=== PATIENT | female | born 1950 | race Caucasian/White ===

== ENCOUNTER 2020-05-20 10:52 | Outpatient (CLI) | payer MEDICARE, SELFPAY ==
--- NOTE | ~2020-05-20 | CT_ITS ---
EXAMINATION: CT lung screening DATE: 05/20/2020 11:30 INDICATION: Personal history of tobacco dependence, prior smoker with 30 pack year history TECHNIQUE: Computed tomography (CT) of the chest was performed without intravenous contrast. The dose -length product (DLP) was 70.83 mGy-cm. Automated exposure control and iterative reconstruction techn ique were employed. COMPARISON: None FINDINGS: There is moderate emphysema. There are scattered 1 to 2 mm nodules in the lungs. The larges t is a 3 mm nodule of the left upper lobe on image 34. There is no pleural effusion or pneumothorax. No pathologically enlarged thoracic lymph nodes are identified. The heart size is normal. Calcified c oronary artery atherosclerosis is noted. There is mild thoracic spondylosis. IMPRESSION: 1. Lung-RADS category 2: Benign appearance or behavior. Continue annual screening with noncontrast lo w-dose chest CT in 12 months. Reviewed, dictated and finalized at location A. IMPRESSION: 1. Lung-RADS category 2: Benign appearance or behavior. Continue annual screeni ng with noncontrast low-dose chest CT in 12 months.
== END 2020-05-20 10:53 | disposition home or self-care (01) ==
PROVIDERS: PCP Family Medicine; Visit Provider Family Medicine
DX: Z12.2 Encounter for screening for malignant neoplasm of respiratory organs (principal); Z87.891 Personal history of nicotine dependence
CPT/HCPCS: G0297

== ENCOUNTER 2020-08-30 14:22 | Outpatient (CLI) | payer MEDICARE, SELFPAY ==
--- NOTE | ~2020-08-30 | XR_ITS ---
EXAMINATION: XR abdomen/kub 1V DATE: 08/30/2020 14:46 INDICATION: Left flank pain. Kidney stone. TECHNIQUE: A supine view of the abdomen on 2 radiographs was obtained. COMPARISON: Abdomen radiographs 02/15/2019 FINDINGS: There are no dilated loops of bowel. There is no visible urolithiasis. There is a phlebolit h in right pelvis. IMPRESSION: 1. No visible urolithiasis. Reviewed, dictated and finalized at location B. IMPRESSION: 1. No visible urolithiasis.
== END 2020-08-30 14:23 | disposition home or self-care (01) ==
LOC: ANHIMG 14:33
PROVIDERS: PCP Family Medicine; Visit Provider Urology
DX: Z87.442 Personal history of urinary calculi (principal)
CPT/HCPCS: 74018

== ENCOUNTER 2020-09-03 01:25 | Emergency (ER) | payer MEDICARE, SELFPAY ==
[2020-09-03] VITALS (8 sets, daily range): BP systolic 97–140; BP diastolic 57–71; PULSE 94–120; RESP 16–24; TEMP 36.6; O2SAT 95–100
--- NOTE | ~2020-09-03 | XR_ITS ---
EXAMINATION: XR chest 2V DATE: 09/03/2020 03:01 INDICATION: Shortness of breath. TECHNIQUE: Frontal and lateral views of the chest were obtained. COMPARISON: Chest single view 01/04/2019, chest CT 05/20/2020 FINDINGS: The lungs are hyperexpanded, consistent with emphysema. There is blunting of left posterior costophrenic angle. No pneumothorax. The heart size is normal. IMPRESSION: 1. Blunting of left posterior costophrenic angle, consistent with scarring versus tiny pleural effusi on. 2. Emphysema. Reviewed, dictated and finalized at location A. IMPRESSION: 1. Blunting of left posterior costophrenic angle, consistent with scarring vers us tiny pleural effusion. 2. Emphysema.
--- NOTE | 2020-09-03 01:48 | ECG_ITS ---
Measurements Intervals [place] Rate: 116 P: 88 [place]: 116 QRS: 46 QRSD: 94 T: 73 QT: 320 QTc: 445 Interpretive Statements SINUS TACHYCARDIA BASELINE ARTIFACT- I, II, III, AVR, AVL, AVF, V1 ABNORMAL ECG Electronically Signed On 09-03-2020 7:05:55 CDT by Rio Francisco D.O.
--- NOTE | 2020-09-03 02:07 | ED.SOB ---
HPI - SOB/Dyspnea General Chief Complaint: Shortness of Breath/Dyspnea Stated Complaint: sob Time Seen by Provider: 09/03/20 01:32 Source: patient Mode of arrival: EMS Limitations: no limitations History of Present Illness HPI Narrative: This patient is a 70 year old female smoker with history of COPD who presents for evaluation of shortness of breath. PAtient states she was in house that was hot and muggy, and she developed shortness of breath. She reports she used her albuterol inhaler twice with out relief and her shortness breath worsen throughout the night. She reports her breathing back worse at 9 pm. She denies having chest pain, worsening cough, fever, nausea, vomiting or palpitations. EMs gave patient 2 albuterol nebs and she states she feels much better. She denies any sob. Related Data Allergies Allergy/AdvReac Type Severity Reaction Status Date / Time acetaminophen Allergy Unknown TRIPS ME Verified 09/03/20 03:07 OUT codeine Allergy Unknown TRIPS ME Verified 09/03/20 03:07 OUT erythromycin base Allergy Unknown sensitive Verified 09/03/20 03:07 Penicillins Allergy Unknown DOESN'T Verified 09/03/20 03:07 REMEMBER Review of Systems Review of Systems: All systems reviewed & are unremarkable except as noted in HPI and below Constitutional: Constitutional: Denies chills and Denies fever(s) ENT: Denies dysphagia, Denies dizziness, Reports nasal congestion (chronic) and Denies sore throat Cardiovascular: Cardiovascular: Denies chest pain, Denies rapid heart rate and Denies radiating jaw, neck or arm pain Respiratory: Respiratory: Denies cough, Reports dyspnea and Denies wheezing Gastrointestinal: Gastrointestinal: Denies abdominal pain, Denies nausea and Denies vomiting PMFSH Past Medical History Medical History (Updated 09/03/20 @ 05:33 by Karely Corley MD) Cerebral atherosclerosis COPD (chronic obstructive pulmonary disease) MINNIE (generalized anxiety disorder) MDD (major depressive disorder) Tobacco abuse Family History Family History (System 04/26/20 @ 09:32 by Mackenzie Hsu) Father Family history of premature coronary heart disease, Onset Age: 72 Patient's father is Mother Family history of cardiomyopathy, Onset Age: 76 Patient's mother is Social History Social History (Updated 05/06/20 @ 11:06 by Gricelda Mancini) Smoking packs per day: 0.5 Smoking cigarettes per day: 10.0 Smoking status: Never smoker Tobacco type: cigarettes Second hand tobacco smoke exposure: Yes Smoking end date: 11/22/18 Alcohol intake: never Substance use: never Substance use type: does not use Gender identity (if verbalized by the patient): Female Exam Const: General: no acute distress and alert Orientation/consciousness: patient oriented x3 HENMT: Head: atraumatic Face and sinus: face symmetric Eyes: EOM: EOMs intact bilaterally Chest: Chest palpation & inspection: normal inspection of the chest Resp: Effort & Inspection: normal respiratory effort, not labored, no retractions and not tachypneic Auscultation: wheezes Other: able speak in complete sentences Cardio: Rate: tachycardic Rhythm: regular rhythm Heart sounds: no murmurs GI: GI Palp: Yes Soft to palpation, No Tenderness to palpation present (GI), No Guarding due to palpation present (GI) and No Rigid due to palpation Skin: General skin exam: normal color Rashes: no rashes Neuro: General: patient oriented x3 and moves all extremities Course Reevaluation(s) Reevaluation #1: Patient states she feels better. She is normal oxygen saturation. This may have just been COPD exacerbation. She works for [employer] so given basilar infiltrates Date: 09/03/20 Time: 05:30 Vital Signs Vital signs: Vital Signs Temperature 97.9 F 09/03/20 01:31 Pulse Rate 120 H 09/03/20 01:31 Respiratory Rate 24 H 09/03/20 01:31 Blood Pressure 140/
[2020-09-03 02:15] LABS: Basophils Absolute Auto 0.1 K/mm3 (0.0-0.1); Basophils Percent Auto 0.3 % (0.2-1.2); Eosinophils Absolute Auto 0.1 K/mm3 (0-0.3); Eosinophils Percent Auto 0.5 % (0-4.4); Hematocrit 49.4 % (37.0-47.0); Hemoglobin 16.4 g/dL (12.0-15.0); Immature Granulocyte Absolute 0.05 K/mm3 (0.00-0.031); Immature Granulocyte Percent A 0.3 % (0-0.5); Lymphocytes Absolute Auto 2.63 K/mm3 (0.9-3.2); Lymphocytes Percent Auto 17.8 % (18.3-44.2); Mean Corpuscular HGB Conc 33.2 g/dl (32-36); Mean Corpuscular Hemoglobin 30.5 pg (26-34); Mean Platelet Volume 11.3 fl (7.4-10.4); Monocytes Absolute Auto 0.9 K/mm3 (0.1-0.6); Monocytes Percent Auto 6.4 % (2.6-8.5); Neutrophils Percent Auto 74.7 % (45.5-73.1); Platelet Count Result 171 k/mm3 (150-375); Red Blood Count 5.37 M/mm3 (4.2-5.4); Red Cell Distribution Width 13.4 % (11.5-14.5); White Blood Count 14.8 K/mm3 (4.5-10.0)
[2020-09-03] MEDS: methylPREDNISolone SOD SUCC 125 MG VIAL IV PUSH (02:16)
[2020-09-03] MEDS: SODIUM CHLORIDE 0.9% IV 1,000 ML 999 ML IV CONT (02:16)
[2020-09-03] MEDS: ALBUTEROL SULFATE NEB 2.5 MG/0.5 ML INH 5 MG INHALATION (02:23)
[2020-09-03] MEDS: IPRATROPIUM BR 0.02% INH SOLN 0.5 MG/2.5 ML VIAL INHALATION (02:23)
[2020-09-03 02:28] LABS: Anion Gap 6 mmol/L (8-16); Blood Urea Nitrogen 14 mg/dL (7-17); Calcium 9.1 mg/dL (8.4-10.2); Carbon Dioxide 33 mmol/L (22-30); Chloride 103 mmol/L (98-107); Estimated CRCL calculation 45 ml/min; Estimated Glomerular Filt Rate > 60; Glucose 165 mg/dL (65-105); Potassium 3.2 mmol/L (3.4-5.0); Sodium 142 mmol/L (137-145)
--- NOTE | 2020-09-03 02:28 | PCRCNOTE ---
Patient refused abg.
[2020-09-03 02:29] LABS: Partial Thromboplastin Time 27.5 SECONDS (22.3-36.8); Prothrombin Time 12.8 Seconds (11.1-14.7)
[2020-09-03 02:32] LABS: D Dimer 0.42 ug/mL (<0.48)
[2020-09-03 02:40] LABS: Troponin I < 0.012 ng/mL (0.000-0.034)
[2020-09-03 02:42] LABS: Lactic Acid Reflex 1.9 mmol/L (0.7-2.1)
[2020-09-03 13:14] LABS: SARS-CoV-2 RNA PCR Negative
== END 2020-09-03 06:05 | disposition home or self-care (01) ==
PROVIDERS: Emergency Provider General Practice; PCP Family Medicine
DX: J44.1 Chronic obstructive pulmonary disease with (acute) exacerbation (principal); Z20.828 Contact with and (suspected) exposure to other viral communicable diseases; R00.0 Tachycardia, unspecified; Z87.891 Personal history of nicotine dependence; F41.9 Anxiety disorder, unspecified
CPT/HCPCS: 36415; 71046; 80048; 83605; 84484; 85025; 85380; 85610; 85730; 87635; 93005; 94640; 96361; 96374; 99284; C9803; J2930; J7030; U0003

== ENCOUNTER 2021-04-06 16:31 | Emergency (ER) | payer MEDICARE, SELFPAY ==
--- NOTE | ~2021-04-06 | XR_ITS ---
EXAMINATION: XR chest 2V EXAM DATE: 04/06/2021 18:24 INDICATION: Cough/sob; hx of HTN, COPD, smoker TECHNIQUE: Frontal and lateral projections of the chest obtained and reviewed. Comparison is made to prior examination from 09/03/2020. FINDINGS: Chronic hyperinflation. The lungs are clear. There are no pleural effusions. The cardiome diastinal silhouette is within normal limits. There is no pneumothorax suspected. The bones and sof t tissues are unremarkable. There is no significant interval change. IMPRESSION: 1. No acute cardiopulmonary findings. 2. Hyperinflation. Reviewed, dictated and finalized at location A.
--- NOTE | 2021-04-06 16:34 | ECG_ITS ---
Measurements Intervals [place] Rate: 87 P: 86 [place]: 135 QRS: 81 QRSD: 87 T: 81 QT: 342 QTc: 412 Interpretive Statements SINUS RHYTHM POSSIBLE RIGHT ATRIAL ENLARGEMENT BORDERLINE ECG Electronically Signed On 04-06-2021 19:20:55 CDT by Rio Francisco D.O.
[2021-04-06 16:40] VITALS: BP 133/68; PULSE 90; RESP 20; TEMP 36.3; O2SAT 100
[2021-04-06 16:58] LABS: Basophils Percent Auto 0.3 % (0.2-1.2); Eosinophils Absolute Auto 0.1 K/mm3 (0-0.3); Eosinophils Percent Auto 1.6 % (0-4.4); Hematocrit 53.6 % (37.0-47.0); Hemoglobin 17.3 g/dL (12.0-15.0); Immature Granulocyte Absolute 0.02 K/mm3 (0.00-0.031); Immature Granulocyte Percent A 0.3 % (0-0.5); Lymphocytes Absolute Auto 1.62 K/mm3 (0.9-3.2); Lymphocytes Percent Auto 21.2 % (18.3-44.2); Mean Corpuscular HGB Conc 32.3 g/dl (32-36); Mean Corpuscular Hemoglobin 29.7 pg (26-34); Mean Corpuscular Volume 91.9 fl (80-100); Mean Platelet Volume 10.8 fl (7.4-10.4); Monocytes Absolute Auto 0.6 K/mm3 (0.1-0.6); Monocytes Percent Auto 8.3 % (2.6-8.5); Neutrophils Absolute Auto 5.2 K/mm3 (1.3-6.7); Neutrophils Percent Auto 68.3 % (45.5-73.1); Platelet Count Result 190 k/mm3 (150-375); Red Blood Count 5.83 M/mm3 (4.2-5.4); Red Cell Distribution Width 13.3 % (11.5-14.5); White Blood Count 7.6 K/mm3 (4.5-10.0)
[2021-04-06 17:10] LABS: Anion Gap 3 mmol/L (8-16); Blood Urea Nitrogen 13 mg/dL (7-17); Calcium 9.5 mg/dL (8.4-10.2); Carbon Dioxide 35 mmol/L (22-30); Chloride 105 mmol/L (98-107); Estimated CRCL calculation 45 ml/min; Estimated Glomerular Filt Rate > 60; Glucose 79 mg/dL (65-105); Sodium 143 mmol/L (137-145)
[2021-04-06 17:29] VITALS: BP 112/78; BP 125/65; BP 127/71; PULSE 77; PULSE 83; PULSE 90
[2021-04-06 18:47] LABS: Troponin I < 0.012 ng/mL (0.000-0.034)
--- NOTE | 2021-04-06 19:25 | PC.NURSE ---
Assumed care of pt at this time, Report taken from Narcisa NORIEGA. Pt alert and upright on stretcher, VSS.
[2021-04-06 19:26] VITALS: BP 139/78; PULSE 73; RESP 18; O2SAT 100
[2021-04-06 19:40] LABS: Add Urine Microscopic? NO; Appearance Urine Clear (Clear); Bilirubin Urine Negative (Negative); Blood Urine Negative (Negative); Color Urine Yellow (Yellow); Glucose Urine UA Negative (Negative); Ketones Urine Negative (Negative); Leukocyte Esterase Ur Negative LEU/UL (Negative); Nitrate Urine Negative (Negative); Protein Urine Negative (Negative); Specific Grav Ur 1.013 (1.001-1.035); Urobilinogen Urine Negative mg/dL (<2.0)
--- NOTE | 2021-04-06 20:10 | ED.DIZZY ---
HPI - Dizziness General Chief Complaint: Dizziness Stated Complaint: light headed and dizzy Time Seen by Provider: 04/06/21 17:32 Source: patient Mode of arrival: ambulatory Limitations: no limitations History of Present Illness HPI Narrative: 70-year-old female History of COPD Patient states that she was at home with the thermostat set at 70 degrees when she had a sudden feeling like she was becoming overheated and dizzy It was not a episode triggered by change in position and it was more of a woozy feeling in the top of her head versus a presyncope or vertigo sensation She really had no other complaints, no symptoms which would suggest the source for a fever such as a cough for dysuria or GI symptoms, no focal weakness, no gait issues Related Data Allergies Allergy/AdvReac Type Severity Reaction Status Date / Time acetaminophen Allergy Unknown TRIPS ME Verified 12/27/20 11:08 OUT codeine Allergy Unknown TRIPS ME Verified 12/27/20 11:08 OUT erythromycin base Allergy Unknown sensitive Verified 12/27/20 11:08 Penicillins Allergy Unknown DOESN'T Verified 12/27/20 11:08 REMEMBER Review of Systems Review of Systems: All systems reviewed & are unremarkable except as noted in HPI and below Constitutional: Constitutional: Reports no additional constitutional complaints, Denies chills, Reports fatigue, Denies fever(s), Denies headache(s) and Reports weakness Eyes: Eyes: Reports no additional eye complaints and Denies change in vision ENT: Reports dizziness, Denies headache(s) and Denies sore throat Cardiovascular: Cardiovascular: Denies chest pain, Denies radiating jaw, neck or arm pain and Denies dyspnea Respiratory: Respiratory: Denies cough and Denies dyspnea Gastrointestinal: Gastrointestinal: Denies abdominal pain, Denies diarrhea and Denies vomiting Genitourinary: Genitourinary: Denies urinary frequency and Denies dysuria Musculoskeletal: Musculoskeletal: Denies deformity, Denies arthralgias, Denies joint swelling and Denies numbness Integumentary/Breasts: Skin/Breast: Denies rash and Denies wounds Neurologic: Reports dizziness, Denies headache(s), Denies focal weakness and Denies numbness Psychiatric: Psychiatric: Reports no additional psychiatric complaints Endocrine: Endocrine: Reports no additional endocrine complaints Hematologic/Lymphatic: Hematologic/Lymphatic: Reports no additional hematologic/lymphatic complaints Allergic/Immunologic: Allergic/Immunologic: Reports no additional allergic/immunologic complaints PMFSH Past Medical History Medical History Cerebral atherosclerosis COPD (chronic obstructive pulmonary disease) MINNIE (generalized anxiety disorder) MDD (major depressive disorder) Tobacco abuse Family History Family History Father Family history of premature coronary heart disease, Onset Age: 72 Patient's father is Mother Family history of cardiomyopathy, Onset Age: 76 Patient's mother is Social History Social History (Updated 12/27/20 @ 11:10 by Fatimah Hauser) Social History: Years smoked: 55 Smoking status: Current some day smoker Tobacco type: cigarettes Second hand tobacco smoke exposure: Yes Smoking end date: 11/22/18 Alcohol intake: never Substance use: never Substance use type: does not use Gender identity (if verbalized by the patient): Female Exam Const: General: cooperative, no acute distress and alert Orientation/consciousness: patient oriented x3 (alert) HENMT: Head: normal to inspection, normocephalic and atraumatic Ears: external ears normal General nose exam: no epistaxis Eyes: Conjunctivae: conjunctivae normal EOM: EOMs intact bilaterally Neck: Neck: normal visual inspection, supple and no JVD Resp: Effort & Inspection: normal respiratory effort, not labored
[2021-04-06 20:28] VITALS: BP 140/70; PULSE 72; RESP 16; O2SAT 98
== END 2021-04-06 20:28 | disposition home or self-care (01) ==
PROVIDERS: Emergency Provider Emergency Medicine; PCP Family Medicine
DX: R42 Dizziness and giddiness (principal); D75.1 Secondary polycythemia; I67.2 Cerebral atherosclerosis; J44.9 Chronic obstructive pulmonary disease, unspecified; F17.210 Nicotine dependence, cigarettes, uncomplicated; R94.31 Abnormal electrocardiogram [ECG] [EKG]; F41.1 Generalized anxiety disorder; F32.9 Major depressive disorder, single episode, unspecified
CPT/HCPCS: 36415; 71046; 80048; 81003; 84484; 85025; 93005; 99284

== ENCOUNTER 2021-04-30 10:05 | Outpatient (CLI) | payer MEDICARE, SELFPAY ==
--- NOTE | ~2021-04-30 | MM_ITS ---
EXAMINATION: MM screening contra [facility] BI w jared HISTORY: Screening mammogram TECHNIQUE: Craniocaudal and mediolateral oblique 3-D tomosynthesis images were obtained and synthetic 2-D images were generated. CAD analysis was submitted and interpreted. COMPARISON: 05/04/2018, 11/2015, 06/21/2013 bilateral digital screening mammogram examinations. BREAST PARENCHYMAL COMPOSITION: There are scattered areas of fibroglandular density. FINDINGS: 5 mm mass in the anterior lower mid right breast at 6:00. 7 mm lobular mass in the upper inner left breast. Stable circumscribed 5 mm probable lymph node in the left axillary tail, likely a benign lymph node.. Bilateral diagnostic mammography and bilateral breast ultrasound examination are recommended. IMPRESSION: 1. Bilateral breast masses 2. Bilateral diagnostic mammography and bilateral breast ultrasound examination are recommended. BI-RADS Category 0: Incomplete: Needs additional imaging evaluation. Reviewed, dictated and finalized at location A.
--- NOTE | ~2021-04-30 | DEXA_ITS ---
Bone Density Report Name: Candy Thurman Age: 70 Sex: Female Ethnicity: White Date of : 1950 Indication: osteopenia; height loss; asthma or emphysema; hysterectomy; Referring Provider: JEREMY MARSH Study: Bone densitometry was performed. Exam Date: April 30, 2021 Accession number: [id number] Bone Density: Region BMD T-score Z-score Classification AP Spine (L1-L4) 0.827 -2.0 0.3 Osteopenia Femoral Neck (Left) 0.526 -2.9 -0.9 Osteoporosis Total Hip (Left) 0.673 -2.2 -0.5 Osteopenia Total Hip Bilateral Avg 0.698 -2.0 -0.3 Osteopenia Femoral Neck (Right) 0.557 -2.6 -0.7 Osteoporosis Total Hip (Right) 0.722 -1.8 -0.1 Osteopenia World Health Organization criteria for BMD impression classify patients as: Normal (T-score at or above -1.0), Osteopenia (T-score between -1.0 and -2.5), or Osteoporosis (T-score at or below -2.5). 10-year Fracture Risk: FRAX not reported because: Some T-score for Spine Total or Hip Total or Femoral Neck at or below -2.5 Previous Exams: Region Exam Age BMD T-score BMD Change BMD Change Date g/cm2 vs Baseline vs Previous AP Spine(L1-L4) 04/30/2021 70 0.827 -2.0 -0.091(-10.0%) 0.002(0.2%) 11/25/2015 65 0.825 -2.0 -0.093(-10.1%) -0.021(-2.5%)# 06/21/2013 63 0.846 -1.8 -0.072(-7.9%)# -0.072(-7.9%)# 02/18/2005 54 0.918 -1.2 Total Hip(Left) 04/30/2021 70 0.673 -2.2 -0.159(-19.2%) -0.071(-9.5%)* 11/25/2015 65 0.743 -1.6 -0.089(-10.7%) -0.023(-3.0%)# 06/21/2013 63 0.766 -1.4 -0.066(-7.9%)# -0.066(-7.9%)# 02/18/2005 54 0.832 -0.9 Total Hip(Right) 04/30/2021 70 0.722 -1.8 -0.144(-16.7%) -0.056(-7.2%)* 11/25/2015 65 0.778 -1.3 -0.088(-10.2%) -0.029(-3.6%)# 06/21/2013 63 0.807 -1.1 -0.059(-6.9%)# -0.059(-6.9%)# 02/18/2005 54 0.866 -0.6 *Denotes significance at 95% confidence level, LSC for AP Spine = 0.022 g/cm2, LSC for Total Hip = 0.027 g/cm2 Clinical Information Provided by Patient: Smokes Has used the following medications: Vitamin D, Calcium Has the following medical conditions: Asthma or Emphysema, Hysterectomy Patient maximum height was 65 Menopause Age: 37 Onset of menses at age 8 Number of children 2 Impression: The patient has osteoporosis, based on the Left Femoral Neck T-score. The patient has risk factors, including: smoking. The BMD for the Total Hip(Left) decreased, changing by -9.5% since the last DXA exam. The BMD for the Total Hip(Right
== END 2021-04-30 10:06 | disposition home or self-care (01) ==
LOC: ANHIMG 10:13
PROVIDERS: PCP Family Medicine; Visit Provider Family Medicine
DX: Z12.31 Encounter for screening mammogram for malignant neoplasm of breast (principal); Z78.0 Asymptomatic menopausal state; R92.8 Other abnormal and inconclusive findings on diagnostic imaging of breast; M81.0 Age-related osteoporosis without current pathological fracture; M85.88 Other specified disorders of bone density and structure, other site; M85.852 Other specified disorders of bone density and structure, left thigh
CPT/HCPCS: 77063; 77067; 77080

== ENCOUNTER 2021-05-13 15:14 | Outpatient (CLI) | payer MEDICARE, SELFPAY ==
--- NOTE | ~2021-05-13 | CT_ITS ---
EXAMINATION:CT diagnostic chest wo con DATE: 05/13/2021 15:34 INDICATION: Lung nodules. Personal history of tobacco dependence. TECHNIQUE: Computed tomography (CT) of the chest was performed without intravenous contrast. Automate d exposure control and iterative reconstruction technique were employed. The dose-length product (DLP ) was 139.50 mGy-cm. COMPARISON: Chest CT 05/20/2020 FINDINGS: There is moderate emphysema. There is mild atelectasis bilaterally. There is a 3 mm nodule in left upper lobe without change, likely benign. No pleural effusion. The heart size is normal. Ther e are coronary artery calcifications. No pericardial effusion. There is thoracic kyphosis and severe spondylosis. IMPRESSION: 1. Lung-RADS category 2: Benign appearance or behavior. Continue annual screening with noncontrast lo w-dose chest CT in 12 months. Reviewed, dictated and finalized at location A. IMPRESSION: 1. Lung-RADS category 2: Benign appearance or behavior. Continue annual screeni ng with noncontrast low-dose chest CT in 12 months.
== END 2021-05-13 15:15 | disposition home or self-care (01) ==
LOC: ANHIMG 15:16
PROVIDERS: PCP Family Medicine; Visit Provider Physician Assistant
DX: Z12.2 Encounter for screening for malignant neoplasm of respiratory organs (principal); Z87.891 Personal history of nicotine dependence
CPT/HCPCS: 71250

== ENCOUNTER 2021-05-27 11:09 | Outpatient (CLI) | payer MEDICARE, SELFPAY ==
--- NOTE | ~2021-05-27 | MMUS_ITS ---
EXAMINATION: MM diagnostic mammo BI, US breast BI limited HISTORY: Bilateral breast masses on screening mammogram TECHNIQUE: Additional 3-D tomosynthesis images of the breasts were performed and synthetic 2-D images were generated. CAD analysis was submitted and interpreted. High resolution limited bilateral breast ultrasound was performed. COMPARISON: 04/30/2021, 05/04/2018, 11/25/2015 FINDINGS: MAMMOGRAPHIC FINDINGS: Left breast: A 7 mm low-density oval, circumscribed mass is present in the upper inner breast at the 10:00 location 6 cm from the nipple and has a similar appearance to prior mammograms with spot compre ssion views. There has been no suspicious interval change. Right breast: There is a 6 mm x 5 mm oval, obscured, equal density mass in the anterior/middle third of the breast at the 6:00 location 3 cm from the nipple ULTRASOUND: Left breast: There is a 5 mm x 3 mm oval, circumscribed, parallel, hypoechoic mass with no posterior features or internal vascularity at the 11:00 location 5 cm from the nipple. Right breast: There is a 6 mm x 4 mm oval, circumscribed, parallel, anechoic mass with posterior acou stic enhancement and no internal vascularity at the 7:00 location 2 cm from the nipple IMPRESSION: 1. Benign bilateral breast masses without mammographic or sonographic evidence of malignancy. 2. Recommend routine screening mammography in one year. BI-RADS Category 2: Benign finding(s). Reviewed, dictated and finalized at location A. IMPRESSION: 1. Benign bilateral breast masses without mammographic or sonographic evidence of malignancy. 2. Recommend routine screening mammography in one year. BI-RADS Category 2: Benign finding(s).
== END 2021-05-27 11:10 | disposition home or self-care (01) ==
LOC: ANHIMG 11:11
PROVIDERS: PCP Family Medicine; Visit Provider Physician Assistant
DX: R92.8 Other abnormal and inconclusive findings on diagnostic imaging of breast (principal)
CPT/HCPCS: 76642; 77066

== ENCOUNTER 2022-07-13 14:28 | Outpatient (CLI) | payer MEDICARE, SELFPAY ==
--- NOTE | ~2022-07-13 | MM_ITS ---
EXAMINATION: MM screening [facility] BI w jared HISTORY: Screening TECHNIQUE: Craniocaudal and mediolateral oblique 3-D tomosynthesis images were obtained and synthetic 2-D images were generated. CAD analysis was submitted and interpreted. COMPARISON: Comparison to multiple prior studies sequentially, with oldest reviewed study dated 02/2016. BREAST PARENCHYMAL COMPOSITION: There are scattered areas of fibroglandular density. FINDINGS: There is no evidence of suspicious mass, calcification, or architectural distortion to sugg est malignancy in either breast. There has been no suspicious interval change. IMPRESSION: 1. No mammographic evidence of malignancy. 2. Recommend routine screening mammography in one year. BI-RADS Category 1: Negative Reviewed, dictated and finalized at location A.
== END 2022-07-13 14:29 | disposition home or self-care (01) ==
LOC: ANHIMG 14:29
PROVIDERS: PCP Family Medicine; Visit Provider Family Medicine
DX: Z12.31 Encounter for screening mammogram for malignant neoplasm of breast (principal)
CPT/HCPCS: 77063; 77067

== ENCOUNTER 2023-09-21 11:18 | Outpatient (CLI) | payer MEDICARE, SELFPAY ==
[2023-09-21 11:45] LABS: Basophils Percent Auto 0.6 % (0.2-1.2); Eosinophils Absolute Auto 0.1 K/mm3 (0-0.3); Eosinophils Percent Auto 1.3 % (0-4.4); Hematocrit 52.8 % (37.0-47.0); Hemoglobin 17.4 g/dL (12.0-15.0); Immature Granulocyte Absolute 0.01 K/mm3 (0.00-0.031); Immature Granulocyte Percent A 0.1 % (0-0.5); Lymphocytes Absolute Auto 1.81 K/mm3 (0.9-3.2); Lymphocytes Percent Auto 26.6 % (18.3-44.2); Mean Corpuscular Hemoglobin 29.3 pg (26-34); Mean Platelet Volume 10.4 fl (7.4-10.4); Monocytes Absolute Auto 0.5 K/mm3 (0.1-0.6); Monocytes Percent Auto 7.5 % (2.6-8.5); Neutrophils Absolute Auto 4.4 K/mm3 (1.3-6.7); Neutrophils Percent Auto 63.9 % (45.5-73.1); Platelet Count Result 216 k/mm3 (150-375); Red Blood Count 5.93 M/mm3 (4.2-5.4); Red Cell Distribution Width 13.7 % (11.5-14.5); White Blood Count 6.8 K/mm3 (4.5-10.0)
[2023-09-21 13:43] LABS: Alanine Aminotransferase 21 U/L (6-35); Albumin Level 4.6 g/dL (3.5-5.1); Alkaline Phosphatase 77 U/L (38-126); Anion Gap 7 mmol/L (8-16); Aspartate Amino Transferase 27 U/L (14-36); Blood Urea Nitrogen 16 mg/dL (7-17); Calcium 9.5 mg/dL (8.4-10.2); Carbon Dioxide 27 mmol/L (22-30); Chloride 104 mmol/L (98-107); Estimated Glomerular Filt Rate > 60; Glucose 97 mg/dL (65-110); Potassium 4.2 mmol/L (3.4-5.0); Sodium 138 mmol/L (137-145)
[2023-09-24 12:39] LABS: Erythropoietin (EPO) 6.4 mIU/mL (2.6-18.5)
[2023-09-28 12:58] LABS: Block/Specimen ID Not Given; CALR Exon 9 Mutation Not Detected (Not Detected); CSF3R Exon 14/17 Mutation Not Detected (Not Detected); JAK2 Exon 12 Mutation Not Detected (Not Detected); JAK2 V617F Mutation Not Detected (Not Detected); MPL Exon 10 Mutation Not Detected (Not Detected); Specimen Source Blood
== END 2023-09-21 11:19 | disposition home or self-care (01) ==
PROVIDERS: PCP Family Medicine; Visit Provider Internal Medicine Hematology & Oncology
DX: D75.1 Secondary polycythemia (principal)
CPT/HCPCS: 36415; 80053; 81219; 81270; 81279; 81339; 81479; 82668; 85025

== ENCOUNTER 2023-12-18 20:26 | Emergency (ER) | payer MEDICARE, SELFPAY ==
[2023-12-18] VITALS (15 sets, daily range): BP systolic 107–156; BP diastolic 51–96; PULSE 83–101; RESP 13–24; TEMP 36.7; O2SAT 93–100
--- NOTE | ~2023-12-18 | CT_ITS ---
EXAMINATION: CTA chest PE protocol DATE: 12/18/2023 21:39 INDICATION: chest pain TECHNIQUE: Computed tomography angiography (CTA) of the chest was performed with 100 mL Omnipaque-350 intravenous contrast timed to evaluate the pulmonary arteries. Coronal maximum intensity projection 3D-reconstructions were created by the technologist. The dose-length product (DLP) was 375.76 mGy-cm. Automated exposure control and iterative reconstruction technique were employed. COMPARISON: X-ray chest, same date; CT chest 05/13/2021. FINDINGS: Lung parenchyma and airways: Scattered tree-in-bud opacities in the right lung. Bibasilar scar/atelec tasis. Emphysematous change. Pleura: Unremarkable. Thoracic inlet, axillae and chest wall: Unremarkable. Thoracic aorta: Normal. Mediastinum: Right hilar and pretracheal lymphadenopathy. Heart and pericardium: Normal. Coronary artery calcifications: Mild. Upper abdomen: No significant finding. Bones: No acute osseous finding. Pulmonary arteries: Study quality: Adequate. No pulmonary emboli detected. IMPRESSION: No CT evidence of acute pulmonary embolus. Mild scattered areas of tree-in-bud opacities in the right lung may represent chronic/atypical infect ion. Right hilar and mediastinal lymphadenopathy. Reviewed, dictated and finalized at location K. ONENT TECHNICIAN IMPRESSION: No CT evidence of acute pulmonary embolus. Mild scattered areas of tree-in-bud opacities in the right lung may represent c hronic/atypical infection. Right hilar and mediastinal lymphadenopathy.
--- NOTE | ~2023-12-18 | XR_ITS ---
EXAMINATION: XR chest 2V Exam Date/Time: 12/18/2023 21:03 PHYSICAL THER HISTORY: CP, SOB Comparison: 04/06/2021. RESULT: Lines, tubes, and devices: None. Lungs and pleura: Senescent/emphysematous change, otherwise clear. Cardiomediastinal silhouette: Stable. Other: No acute osseous or upper abdominal finding. IMPRESSION: No acute cardiopulmonary process. Reviewed, dictated and finalized at location K. ICAL THER
--- NOTE | 2023-12-18 20:26 | ECG_ITS ---
Measurements Intervals [place] Rate: 91 P: 73 [place]: 140 QRS: 35 QRSD: 100 T: 60 QT: 339 QTc: 419 Interpretive Statements SINUS RHYTHM BORDERLINE ST ABNORMALITY- ANTEROLAT/INF LEADS BASELINE ARTIFACT- I, III, AVR, AVL BORDERLINE ECG COMPARED TO ECG 04/06/2021 16:38:23 ST (T WAVE) DEVIATION NOW PRESENT Electronically Signed On 12-19-2023 7:59:07 [employer] by Rio Francisco D.O.
[2023-12-18 20:56] LABS: Basophils Percent Auto 0.4 % (0.2-1.2); Eosinophils Absolute Auto 0.1 K/mm3 (0-0.3); Eosinophils Percent Auto 0.7 % (0-4.4); Hematocrit 50.5 % (37.0-47.0); Hemoglobin 16.4 g/dL (12.0-15.0); Immature Granulocyte Absolute 0.03 K/mm3 (0.00-0.031); Immature Granulocyte Percent A 0.3 % (0-0.5); Lymphocytes Absolute Auto 2.25 K/mm3 (0.9-3.2); Lymphocytes Percent Auto 22.1 % (18.3-44.2); Mean Corpuscular HGB Conc 32.5 g/dl (32-36); Mean Corpuscular Hemoglobin 28.8 pg (26-34); Mean Corpuscular Volume 88.8 fl (80-100); Mean Platelet Volume 10.3 fl (7.4-10.4); Monocytes Absolute Auto 0.9 K/mm3 (0.1-0.6); Monocytes Percent Auto 8.7 % (2.6-8.5); Neutrophils Absolute Auto 6.9 K/mm3 (1.3-6.7); Neutrophils Percent Auto 67.8 % (45.5-73.1); Platelet Count Result 202 k/mm3 (150-375); Red Blood Count 5.69 M/mm3 (4.2-5.4); Red Cell Distribution Width 14.1 % (11.5-14.5); White Blood Count 10.2 K/mm3 (4.5-10.0)
[2023-12-18 21:09] LABS: Partial Thromboplastin Time 28.1 SECONDS (22.3-36.8)
[2023-12-18 21:10] LABS: Alanine Aminotransferase 21 U/L (6-35); Albumin Level 4.5 g/dL (3.5-5.1); Alkaline Phosphatase 80 U/L (38-126); Anion Gap 8 mmol/L (8-16); Aspartate Amino Transferase 32 U/L (14-36); Bilirubin,Total 0.8 mg/dL (0.2-1.3); Blood Urea Nitrogen 19 mg/dL (7-17); Calcium 9.2 mg/dL (8.4-10.2); Carbon Dioxide 27 mmol/L (22-30); Chloride 103 mmol/L (98-107); Estimated CRCL calculation 46 ml/min; Estimated Glomerular Filt Rate > 60; Glucose 110 mg/dL (65-110); Lipase 83 U/L (23-300); Potassium 3.9 mmol/L (3.4-5.0); Sodium 138 mmol/L (137-145)
[2023-12-18 21:19] LABS: Troponin I < 0.012 ng/mL (0.000-0.034)
--- NOTE | 2023-12-18 21:20 | ED.GENADULT ---
HPI - General Adult General Chief complaint: Shortness of Breath/Dyspnea Stated complaint: CP, SOB Time Seen by Provider: 12/18/23 20:52 Source: patient Mode of arrival: ambulatory Limitations: no limitations History of Present Illness HPI narrative: This is a 73-year-old female with PMH of COPD, MINNIE who presents to the ED with chief complaint of right-sided pleuritic chest pain beginning around 7:00 a.m. this morning. Reports every time she takes a deep breath her the right side of her chest hurts. Denies any exertional component the chest pain. Denies any chest pain at rest. endorses some increased cough recently Denies syncope, lightheadedness palpitations, leg swelling. Related Data Allergies Allergy/AdvReac Type Severity Reaction Status Date / Time acetaminophen Allergy Unknown TRIPS ME Verified 12/18/23 20:48 OUT codeine Allergy Unknown TRIPS ME Verified 12/18/23 20:48 OUT erythromycin base Allergy Unknown sensitive Verified 12/18/23 20:48 Penicillins Allergy Unknown DOESN'T Verified 12/18/23 20:48 REMEMBER Review of Systems Review of Systems: All systems as dictated in [facility] Past Medical History Medical History Breast cancer screening other than mammogram Cerebral atherosclerosis COPD (chronic obstructive pulmonary disease) COPD exacerbation Dysuria MINNIE (generalized anxiety disorder) Hyponatremia MDD (major depressive disorder) Person under investigation for COVID-19 Tobacco abuse Family History Family History Father Family history of premature coronary heart disease, Onset Age: 72 Patient's father is Mother Family history of cardiomyopathy, Onset Age: 76 Patient's mother is Social History Social History (Updated 09/23/23 @ 13:02 by Fatimah Hauser) Social History: Smoking packs per day: 0.5 Smoking cigarettes per day: 10.0 Years smoked: 55 Smoking pack-years: 27.50 Smoking status: Current every day smoker Tobacco type: cigarettes Second hand tobacco smoke exposure: Yes Alcohol intake: never Substance use: never Substance use type: does not use Lack of Transportation: No Lack of Food: Never True Current Housing: I Have Housing Concerned About Future Housing: No Difficulty Paying Gas/Electric Bills: No Difficulty Paying for Meds: No Currently Unemployed: No Education: Decline to Answer Difficulty w/ Childcare or Family Care: No Living arrangements: alone Occupation/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 HEAD: Normocephalic, atraumatic. EYES: PERRLA and EOMI. ENT: Nares clear, no rhinorrhea or epistaxis. Mucous membranes moist. Oropharynx without tonsillar hypertrophy exudate or other lesions. NECK: Supple. No adenopathy or masses. CHEST: No respiratory distress. Mild wheezes bilaterally. 100% on room air. HEART: Regular rate and rhythm. No murmur heard. Normal peripheral pulses. ABDOMEN: Soft, nontender, nondistended, normal active bowel sounds. MSK: Normal range of motion. No edema. SKIN: Warm, dry, no rash. NEURO: Alert and oriented x3. No focal deficits. PSYCH: Normal mood and affect. Course Course Emergency Course: Re-evaluation 0030: Feeling much improved after breathing treatment. Pain is reduced. Vital Signs Vital signs: Vital Signs Temperature 98.0 F 12/18/23 20:41 Pulse Rate 91 12/18/23 20:41 Respiratory Rate 24 H 12/18/23 20:41 Blood Pressure 156/96 H 12/18/23 20:41 Pulse Oximetry 100 12/18/23 20:41 Oxygen Delivery Room Air 12/18/23 20:41 Temperature 9
[2023-12-18] MEDS: ASPIRIN 81 MG CHEWABLE TABLET 324 MG PO (21:45)
[2023-12-18] MEDS: ALBUTEROL SULFATE NEB 2.5 MG/3 ML INH 10 MG INHALATION (22:16)
[2023-12-18] MEDS: IPRATROPIUM BR 0.02% INH SOLN 0.5 MG/2.5 ML VIAL 2 MG INHALATION (22:17)
[2023-12-19 00:11] VITALS: PULSE 92; RESP 14
[2023-12-19 00:15] VITALS: PULSE 90; RESP 17
[2023-12-19 00:19] LABS: Troponin I < 0.012 ng/mL (0.000-0.034)
[2023-12-19 00:30] VITALS: PULSE 92; RESP 17; O2SAT 99
[2023-12-19 00:54] VITALS: PULSE 89; RESP 14; O2SAT 96
[2023-12-19] MEDS: levoFLOXacin 750 MG TABLET PO (00:57)
== END 2023-12-19 01:06 | disposition home or self-care (01) ==
PROVIDERS: Emergency Medicine; Emergency Provider Physician Assistant; PCP Family Medicine
DX: J44.1 Chronic obstructive pulmonary disease with (acute) exacerbation (principal); I67.2 Cerebral atherosclerosis; F41.1 Generalized anxiety disorder; F32.9 Major depressive disorder, single episode, unspecified; F17.210 Nicotine dependence, cigarettes, uncomplicated; Z79.82 Long term (current) use of aspirin; R94.31 Abnormal electrocardiogram [ECG] [EKG]
CPT/HCPCS: 36415; 71046; 71275; 80053; 83690; 84484; 85025; 85610; 85730; 93005; 94640; 99284; A9270; Q9967

== ENCOUNTER 2024-10-10 11:23 | Outpatient (CLI) | payer MEDICARE, SELFPAY ==
[2024-10-10 11:52] LABS: Basophils Percent Auto 0.5 % (0.2-1.2); Eosinophils Absolute Auto 0.1 K/mm3 (0-0.3); Eosinophils Percent Auto 1.3 % (0-4.4); Hematocrit 52.2 % (37.0-47.0); Hemoglobin 17.1 g/dL (12.0-15.0); Immature Granulocyte Absolute 0.03 K/mm3 (0.00-0.031); Immature Granulocyte Percent A 0.5 % (0-0.5); Lymphocytes Absolute Auto 1.69 K/mm3 (0.9-3.2); Lymphocytes Percent Auto 26.7 % (18.3-44.2); Mean Corpuscular HGB Conc 32.8 g/dl (32-36); Mean Corpuscular Hemoglobin 29.3 pg (26-34); Mean Corpuscular Volume 89.5 fl (80-100); Mean Platelet Volume 10.6 fl (7.4-10.4); Monocytes Absolute Auto 0.5 K/mm3 (0.1-0.6); Monocytes Percent Auto 7.4 % (2.6-8.5); Neutrophils Percent Auto 63.6 % (45.5-73.1); Platelet Count Result 226 k/mm3 (150-375); Red Blood Count 5.83 M/mm3 (4.2-5.4); Red Cell Distribution Width 13.8 % (11.5-14.5); White Blood Count 6.3 K/mm3 (4.5-10.0)
== END 2024-10-10 11:24 | disposition home or self-care (01) ==
LOC: ANHLAB 11:25
PROVIDERS: PCP Family Medicine; Visit Provider Internal Medicine Hematology & Oncology
DX: D75.1 Secondary polycythemia (principal)
CPT/HCPCS: 36415; 85025

== ENCOUNTER 2025-02-22 13:22 | Outpatient (CLI) | payer MEDICARE, SELFPAY ==
--- NOTE | ~2025-02-22 | US_ITS ---
EXAMINATION: US arterial duplex LE DATE: 02/22/2025 14:40 INDICATION: Peripheral vascular disease TECHNIQUE: Grayscale ultrasound images without compression and Doppler ultrasound images of the bilat eral lower extremity arteries were were obtained. COMPARISON: None. FINDINGS: Peak systolic velocity (cm/sec) ; waveform Right lower extremity External iliac artery: 114; triphasic Common femoral artery: 67; triphasic Profunda femoral artery: 72; biphasic Superficial femoral artery: 117; biphasic Popliteal artery: 56; biphasic Anterior tibial artery: 23; monophasic Posterior tibial artery: 51; biphasic Peroneal artery: 34; biphasic Dorsalis pedis: 65; biphasic Peak systolic velocity (cm/sec) ; waveform Left lower extremity External iliac artery: 75; biphasic Common femoral artery: 77; triphasic Profunda femoral artery: 74; biphasic Superficial femoral artery: 97; triphasic Popliteal artery: 47; biphasic Anterior tibial artery: 13; monophasic Posterior tibial artery: 47; biphasic Peroneal artery: 43; biphasic Dorsalis pedis: 59; biphasic IMPRESSION: Diffuse disease throughout the arterial system of the bilateral lower extremities, without a discrete high-grade stenosis. No inflow stenosis. Biphasic flow into the bilateral feet. Monophasic flow within the bilateral anterior tibial arteries, as detailed above Reviewed, dictated and finalized at location A. IMPRESSION: Diffuse disease throughout the arterial system of the bilateral lower extremiti es, without a discrete high-grade stenosis. No inflow stenosis. Biphasic flow into the bilateral feet. Monophasic flow within the bilateral anterior tibial arteries, as detailed abov e
--- OUTSIDE RECORDS SUMMARY | 2025-02-22 13:47 | XMS_ITS | Clinical Summary ---
Author Organization [facility] Thong navdeep Carter Address [address] [place] [address] Care Team Providers Care Owner Manager Name Role Phone Kamila Navarro MD Primary Care Provider [phone] Allergies No known active allergies Medications clonazePAM (KlonoPIN) 0.5 mg Tablet Take 0.5 mg by mouth 2 times daily. Active nortriptyline (PAMELOR) 75 mg capsule Take 75 mg by mouth daily at bedtime. Active fluticasone-ume clidinium-vilan terol (Trelegy Ellipta) 100-62.5-25 mcg Disk with Device Take 1 Puff by inhalation daily. Active alendronate sodium (ALENDRONATE ORAL) Take by mouth. Activ e rosuvastatin (CRESTOR) 5 mg tablet Take 5 mg by mouth daily. Active Active Problems No known active problems Encounters Date Type Department Care Team Description 02/19/2025 Orders Only [facility] Oncology and Hematology - [place] [address] [place] [address] Bishop Castellanos MD Polycythemia, secondary 02/07/2025 External Device Data STL ABSTRACTION Provider, Abstract 02/05/2025 Orders Only [facility] Oncology and Hematology - [place] [address] [place] [address] Bishop Castellanos MD Polycythemia, secondary 01/27/2025 External Device Data STL ABSTRACTION Provider, Abstract 01/27/2025 External Device Data STL ABSTRACTION Provider, Abstract 01/24/2025 External Device Data STL ABSTRACTION Provider, Abstract 01/22/2025 Orders Only [facility] Oncology and Hematology - [place] [id number] Bishop Castellanos MD Polycythemia, secondary 01/10/2025 External Device Data STL ABSTRACTION Provider, Abstract 01/08/2025 Orders Only [facility] Oncology and Hematology - [place] [address] [place] [id number] Bishop Castellanos MD Polycythemia, secondary 12/25/2024 Orders Only [facility] Oncology and Hematology - [place] [address] [place] [id number] Bishop Castellanos MD Polycythemia, secondary 12/14/2024 External Device Data STL ABSTRACTION Provider, Abstract 12/11/2024 Orders Only [facility] Oncology and Hematology - [place] [address] [place] [phone] Bishop Castellanos MD Polycythemia, secondary 12/08/2024 Orders Only [facility] Oncology and Hematology - [place] [address] [place] [phone] Bishop Castellanos MD 11/28/2024 Orders Only [facility] Oncology and Hematology - [place] [address] [place] [id number] Bishop Castellanos MD Polycythemia, secondary (Primary Dx) from Last 3 Months Family History Medical History Relation Name Comments Heart Disease Brother Liver Cancer Daughter Thyroid Cancer Daughter Heart Disease Father Stroke Father Colon Cancer Mother Heart Attack Sister Stroke Sister Relation Name Status Comments Brother Daughter Alive Father Mother Sister Social History Tobacco Use Types Packs/Day Years Used Date Smoking Tobacco: Every Day Cigarettes 0.5 50 Smokeless Tobacco: Never Tobacco Cessation:Ready to Q uit: Not Asked; Counseling Given: Not Answered Alcohol Use Standard Drinks/Week Comments Not Currently 0 (1 standard drink = 0.6 oz pur e alcohol) Comments Unknown Sex and Gender Information Value Date Recorded Sex Assigned at Not on file Legal Sex Female 9:08 AM CDT Gender Identity Not on file Sexual Orientation Not on file Last Filed Vital Signs Vital Sign Reading Time Taken Comments Blood Pressure 121/79 10/26/2024 9:24 AM MANAGER CARE Pulse 74 10/26/2024 9:24 AM MANAGER CARE Temperature 36.3 C (97.3 F) 10/26/2024 9:24 AM MANAGER CARE Respiratory Rate 16 10/26/2024 9:24 AM MANAGER CARE Oxygen Saturation 94% 10/26/2024 9:24 AM MANAGER CARE Inhaled Oxygen Concentration - - Weight 73.8 kg (162 lb 12.8 oz) 10/26/2024 9:24 AM MANAGER CARE Height 157.5 cm (5' 2 ) 09/21/2023 10:2 1 AM CDT Body Mass Index 29.78 09/21/2023 10:21 AM CDT Plan of Treatment Upcoming Encounters Date Type Department Care Team (Late st Contact Info) Description 04/26/2025 1:00 PM CDT Office Visit [facility] Oncology and Hematology - [place] [address] [place] [address] [facility] [address] [place] [address] Bishop Castellanos MD [address] [facility] [address] [place] [address] Health Maintenance Due Date Last Done Comments DTAP/TDAP/TD VACCINES (1 - Tdap) 1969 PNEUMOCOCCAL VACCINE 50+ YEARS (1 of 2 - PCV) 06/05/19 [birth year] Traditional Medicare (O) Annual Wellness Visit 06/05 Lung Cancer Screening 1998 ZOSTER VACCINE (1 of 2) 1998 RSV VACCINE (60+ or ) (1 - 1-dose 75+ series) 2023 INFLUENZA VACCINE (#1) 2024 09/03/2023 OSTEOPOROSIS SCREENING Completed 04/30/2021 Procedures Procedure Name Priority Date/Time Associated Diagnosis Comments CBC WITH DIFFERENTIAL Routine 12/07/2024 12:38 PM MANAGER CARE from Last 3 Months Results * CBC WITH DIFFERENTIAL (12/07/2024 12:38 PM MANAGER CARE) Blood Bishop Castellanos MD HEMATOLOGY ORDERABLES Final Res ult from Last 3 Months Insurance MEDICARE PART A AND B [facility] [id number] Care Teams Owner Manager Relationship Specialty Start Date End Date Kamila Navarro MD PCP - General Family Practice 09/21/23
--- OUTSIDE RECORDS SUMMARY | 2025-02-22 13:47 | XMS_ITS | Clinical Summary ---
Author Organization [facility] Address [address] [place] [address] Care Team Providers Care Bowling Alley Refinisher Name Role Phone Kamila Navarro MD Primary Care Provider + Source Comments [facility],non-owned Affiliates and Associated Physician Practices is amultiple site organization consisting of ambulatory clinics and hospital sitesin [place], [place], [place] and [place]. This disclosure is being madepursuant to the Care Everywhere program and may not contain all information available regarding this patient. Last updated 18.[facility] [employer] Allergies No known active allergies Social History Tobacco Use Types Packs/Day Years Used Date Smoking Tobacco: Never Assessed Sex and Gender Information Value Date Recorded Sex Assigned at Not on file Gender Identity Not on file Sexual Orientation Not on file Plan of Treatment Health Maintenance Due Date Last Done Comments BONE DENSITY TESTING 1950 HEPATITIS C SCREENING 06/01/1966 DTAP/TDAP/TD VACCINES (1 - Tdap) 1967 PNEUMOCOCCAL VACCINE 50+ (1 of 1 - PCV) 1998 ZOSTER VACCINE (1 of 2) 1998 Respiratory Syncytial Virus (RSV) Vaccine Pt: or over 60 yrs (1 - 1-dose 75+ series) 2023 COVID-19 VACCINE ( - 2023-2 5 season) 2024 INFLUENZA VACCINE (#1) 2024 DEPRESSION SCREENING 11/22/2024 HEPATITIS B VACCINE Aged Out No longe r eligible based on patient's age to complete this topic HIB VACCINE Aged Out No longer eligi ble based on patient's age to complete this topic HPV VACCINE Aged Out No longer eligi ble based on patient's age to complete this topic MENINGOCOCCAL (Group B) VACC INE SHARED DECISION-MAKING Aged Out No longer eligibl e based on patient's age to complete this topic MENINGOCOCCAL GROUPS A/C/Y/W VACCINE Aged Out No longer eligible b ased on patient's age to complete this topic Care Teams Bowling Alley Refinisher Relationship Specialty Start Date End Date Kamila Navarro MD [address] [facility] [address] [place] [id number] PCP - General Family Medicine 08/17/18
--- OUTSIDE RECORDS SUMMARY | 2025-02-22 13:47 | XMS_ITS | Encounter Summary ---
Author Organization [facility] [employer] Johanny [facility] Address [address] [place] [address] Care Team Providers Care Farm Management Adviser Name Role Phone Kamila Navarro MD Primary Care Provider [phone]- [phone] Encounter Details Date Type Department Care Team (Late Contact Info) Description 02/19/2025 Orders Only [facility] Oncology and Hematology [place] [address] [place] [address] Bishop Castellanos MD [facility] [address] [place] [address] Polycythemia, secondary Social History Tobacco Use Types Packs/Day Years Used Date Smoking Tobacco: Every Day Cigarettes 0.5 50 Smokeless Tobacco: Never Alcohol Use Standard Drinks/Week Comments Not Currently 0 (1 standard drink = 0.6 oz pur e alcohol) Comments Unknown Sex and Gender Information Value Date Recorded Sex Assigned at Not on file Legal Sex Female 9:08 AM CDT Gender Identity Not on file Sexual Orientation Not on file documented as of this encounter Plan of Treatment Upcoming Encounters Date Type Department Care Team (Late Contact Info) Description 04/26/2025 1:00 PM CDT Office Visit [facility] Oncology and Hematology - [place] [address] [place] [address] Bishop Castellanos MD [address] [place] [address] documented as of this encounter Visit Diagnoses Diagnosis Polycythemia, secondary documented in this encounter Care Teams Farm Management Adviser Relationship Specialty Start Date End Date Kamila Navarro MD PCP - General Family Practice 09/21/23 documented as of this encounter
== END 2025-02-22 13:23 | disposition home or self-care (01) ==
PROVIDERS: PCP Family Medicine; Visit Provider Podiatrist Foot & Ankle Surgery
DX: I73.89 Other specified peripheral vascular diseases (principal); I70.223 Atherosclerosis of native arteries of extremities with rest pain, bilateral legs
CPT/HCPCS: 93925

== ENCOUNTER 2025-04-26 13:02 | Outpatient (CLI) | payer MEDICARE, SELFPAY ==
[2025-04-26 13:21] LABS: Basophils Percent Auto 0.2 % (0.2-1.2); Eosinophils Absolute Auto 0.1 K/mm3 (0-0.3); Eosinophils Percent Auto 0.6 % (0-4.4); Hematocrit 53.7 % (37.0-47.0); Hemoglobin 17.6 g/dL (12.0-15.0); Immature Granulocyte Absolute 0.08 K/mm3 (0.00-0.031); Immature Granulocyte Percent A 0.6 % (0-0.5); Lymphocytes Absolute Auto 3.22 K/mm3 (0.9-3.2); Lymphocytes Percent Auto 24.8 % (18.3-44.2); Mean Corpuscular HGB Conc 32.8 g/dl (32-36); Mean Corpuscular Hemoglobin 29.4 pg (26-34); Mean Corpuscular Volume 89.6 fl (80-100); Mean Platelet Volume 10.7 fl (7.4-10.4); Monocytes Percent Auto 7.7 % (2.6-8.5); Neutrophils Absolute Auto 8.6 K/mm3 (1.3-6.7); Neutrophils Percent Auto 66.1 % (45.5-73.1); Platelet Count Result 211 k/mm3 (150-375); Red Blood Count 5.99 M/mm3 (4.2-5.4); Red Cell Distribution Width 13.8 % (11.5-14.5)
--- OUTSIDE RECORDS SUMMARY | 2025-04-26 13:38 | XMS_ITS | Encounter Summary ---
Author Organization [facility] [employer] Address [address] [place] [address] Care Team Providers Care Compensation Administrator Name Role Phone Lucas Hernandez MD Primary Care Provider [phone] Encounter Details Date Type Department Care Team (Late st Contact Info) Description 04/26/2025 1:00 PM CDT Office Visit [facility] Oncology and Hematology - [place] [address] [facility] [address] [place] [address] Bishop Castellanos MD [address] [facility] [address] [place] [address] Arrived Social History Tobacco Use Types Packs/Day Years [...] on file documented as of this encounter Last Filed Vital Signs Vital Sign Reading Time Taken Comments Blood Pressure 155/91 04/26/2025 1:31 PM CDT Patient feels anxious Pulse 63 04/26/2025 1:23 PM CDT Temperature 36.2 C (97.2 F) 04/26/2025 1:23 PM CDT Respiratory Rate 15 04/26/2025 1:23 PM CDT Oxygen Saturation 90% 04/26/2025 1:2 3 PM CDT Inhaled Oxygen Concentration - - Weight 74.5 kg (164 lb 3.2 oz) 04/26/2025 1:23 PM CDT Height - - Body Mass Index 30.03 09/21/2023 10:21 AM CDT documented in this encounter Plan of Treatment Not on file documented as of this encounter Visit Diagnoses Not on filedocumented in this encounter Care Teams Compensation Administrator Relationship Specialty Start Date End Date Lucas Hernandez MD [address] [facility] [address] [place] [address] PCP - General Family Practice 04/26/25 documented as of this encounter
--- OUTSIDE RECORDS SUMMARY | 2025-04-26 13:38 | XMS_ITS | Clinical Summary ---
Author Organization [facility] Thong navdeep Carter Address [address] [place] [address] Care Team Providers Care Top Loader Name Role Phone Lucas Hernandez MD Primary Care Provider [phone] Allergies No known active allergies Medications clonazePAM [...] Encounters Date Type Department Care Team Description 04/26/2025 1:00 PM CDT Office Visit [facility] Oncology and Hematology - [place] [address] [place] [address] Bishop Castellanos MD Arrived 04/16/2025 Orders Only [facility] Oncology and Hematology - [place] [address] [place] [address] Bishop Castellanos MD Polycythemia, secondary 04/12/2025 External Device Data STL ABSTRACTION Provider, Abstract 04/11/2025 External Device Data STL ABSTRACTION Provider, Abstract 04/11/2025 External Device Data STL ABSTRACTION Provider, Abstract 04/02/2025 Orders Only [facility] Oncology and Hematology - [place] [address] [place] [phone] Bishop Castellanos MD Polycythemia, secondary 03/19/2025 Orders Only [facility] Oncology and Hematology - [place] [address] [place] [address] Bishop Castellanos MD Polycythemia, secondary 03/05/2025 Orders Only [facility] Oncology and Hematology - [place] [address] [place] [address] Bishop Castellanos MD Polycythemia, secondary 02/19/2025 Orders Only [facility] Oncology and Hematology - [place] [address] [place] [address] Bishop Castellanos MD Polycythemia, secondary 02/07/2025 External Device Data STL ABSTRACTION Provider, Abstract 02/05/2025 Orders Only [facility] Oncology and Hematology - [place] [address] [place] [phone] Bishop Castellanos MD Polycythemia, secondary 01/27/2025 External Device Data STL ABSTRACTION Provider, Abstract 01/27/2025 External Device Data STL ABSTRACTION Provider, Abstract 01/24/2025 External Device Data STL ABSTRACTION Provider, Abstract from Last 3 Months Family History Medical [...] 3.2 oz) 04/26/2025 1:23 PM CDT Height 157.5 cm (5' 2) 09/21/2023 10:2 1 AM CDT Body Mass Index 30.03 09/21/2023 10:21 AM CDT Plan of Treatment Health Maintenance Due Date Last Done Comments DTAP/TDAP/TD VACCINES (1 - Tdap) 1969 PNEUMOCOCCAL VACCINE 50+ YEARS (1 of 2 - PCV) 06/05/19 67 Traditional Medicare ([facility]) Annual Wellness Visit 06/05 Lung Cancer Screening 1998 ZOSTER VACCINE (1 of 2) 1998 RSV VACCINE (60+ or ) (1 - 1-dose 75+ series) 2023 INFLUENZA VACCINE (#1) 2024 09/03/2023 OSTEOPOROSIS SCREENING 04/30/2026 04/30/2021 Insurance MEDICARE PART A AND B [facility] [id number] [place] [address] Care Teams Top Loader Relationship Specialty Start Date End Date Lucas Hernandez MD [address] [facility] [address] [place] [phone] PCP - General Family Practice 04/26/25
--- OUTSIDE RECORDS SUMMARY | 2025-04-26 13:38 | XMS_ITS | Clinical Summary ---
Author Organization [facility] Address [address] [place] [address] Care Team Providers Care Editor & Co Founder Name Role Phone Kamila Navarro MD Primary Care Provider + Source Comments [facility],non-owned Affiliates and Associated Physician Practices is amultiple site organization consisting of ambulatory clinics and hospital sitesin [place], [place] and [place]. This disclosure is being madepursuant to the Care Everywhere program and may not contain all information available regarding this patient. Last updated 18.[facility] [employer] Allergies No known active allergies Social History Tobacco Use Types Packs/Day Years Used Date Smoking Tobacco: Never Assessed Comments Unknown Sex and Gender Information Value Date Recorded Sex Assigned at Not on file Legal Sex Female 11:11 AM CDT Gender Identity Not on file [...] VACCINE ( - 2023-2 5 season) 2024 DEPRESSION SCREENING 11/22/2024 INFLUENZA VACCINE (Season Ended) 2025 HEPATITIS B VACCINE Aged Out No longe [...] age to complete this topic Care Teams Editor & Co Founder Relationship Specialty Start Date End Date Kamila Navarro MD [address] [place] [address] PCP - General Family Medicine 08/17/18
== END 2025-04-26 13:03 | disposition home or self-care (01) ==
LOC: ANHLAB 13:04
PROVIDERS: PCP Family Medicine; Visit Provider Internal Medicine Hematology & Oncology
DX: D75.1 Secondary polycythemia (principal)
CPT/HCPCS: 36415; 85025

== ENCOUNTER 2025-06-28 12:45 | Outpatient (CLI) | payer MEDICARE, SELFPAY ==
--- OUTSIDE RECORDS SUMMARY | 2025-06-28 12:50 | XMS_ITS | Encounter Summary ---
Author Organization [facility] [employer] Johanny [facility] Address [address] [place] [address] Care Team Providers Care Director Software Development Name Role Phone Lucas Hernandez MD Primary Care Provider Encounter Details Date Type Department Care Team (Late Contact Info) Description 06/25/2025 Orders Only [facility] Oncology and Hematology [address] [address] [place] [address] Bishop Castellanos MD [facility] [address] [place] [address] Polycythemia, secondary Social History Tobacco Use [...] Department Care Team (Late Contact Info) Description 11/05/2025 10:15 AM INFORMATION SYSTEMS ARCHITECT Office Visit [facility] Oncology and Hematology - [place] [address] [place] [address] Bishop Castellanos MD [facility] [address] [place] [address] documented as of this encounter Visit Diagnoses Diagnosis Polycythemia, secondary documented in this encounter Care Teams Director Software Development Relationship Specialty Start Date End Date Lucas Hernandez MD [address] [facility] [address] [facility] [address] [place] [phone] PCP - General Family Practice 04/26/25 documented as of this encounter
--- OUTSIDE RECORDS SUMMARY | 2025-06-28 12:50 | XMS_ITS | Clinical Summary ---
Author Organization [facility] Address [address] [place] [address] Care Team Providers Care Bottling Room Worker Name Role Phone aKmila Navarro MD Primary Care Provider + Source Comments [facility],non-owned Affiliates and Associated Physician Practices is amultiple site organization consisting of ambulatory clinics and hospital sitesin [place], [place], [place] and [place]. This disclosure is being madepursuant to the Care Everywhere program and may not contain all information available regarding this patient. Last updated 18.[facility] [employer] Allergies No known active allergies Social History [...] season) 2024 DEPRESSION SCREENING 11/22/2024 INFLUENZA VACCINE (#1) 2025 HEPATITIS B VACCINE Aged Out No [...] age to complete this topic Care Teams Bottling Room Worker Relationship Specialty Start Date End Date Kamila Navarro MD [address] [place] [address] PCP - General Family Medicine 08/17/18
--- OUTSIDE RECORDS SUMMARY | 2025-06-28 12:50 | XMS_ITS | Clinical Summary ---
Author Organization [facility] Thong navdeep Carter Address [address] [place] [address] Care Team Providers Care Scientist Name Role Phone Lucas Hernandez MD Primary Care Provider [phone] Allergies No known active allergies Medications clonazePAM [...] Encounters Date Type Department Care Team Description 06/25/2025 Orders Only [facility] Oncology and Hematology - Dane Jose [address]to [address] [place] [address] Bishop Castellanos MD Polycythemia, secondary 06/11/2025 Orders Only [facility]ematology - Dane Jannet Shirin [address] [place] [address] Bishop Castellanos MD Polycythemia, secondary 06/06/2025 External Device Data STL ABSTRACTION Provider, Abstract 06/06/2025 External Device Data STL ABSTRACTION Provider, Abstract 05/28/2025 Orders Only [facility] Hematology - Dane [address] [place] [id number] Bishop Castellanos MD Polycythemia, secondary 05/22/2025 External Device Data STL ABSTRACTION Provider, Abstract 05/22/2025 External Device Data STL ABSTRACTION Provider, Abstract 05/22/2025 External Device Data STL ABSTRACTION Provider, Abstract 05/14/2025 Orders Only [facility] On[facility] Hematology - [address]ane [address] [place] [address] Bishop Castellanos MD Polycythemia, secondary 05/08/2025 External Device Data STL ABSTRACTION Provider, Abstract 04/30/2025 Orders Only [facility] On[facility] Hematology - Dane [address] [place] [id number] Bishop Castellanos MD Polycythemia, secondary 04/27/2025 Orders Only [facility] On[facility] Hematology - Dane [address] [place] [phone] Bishop Castellanos MD 04/26/2025 1:00 PM CDT Office Visit [facility] On[facility] Hematology - Dane [address] [place] [id number] Bishop Castellanos MD Polycythemia, secondary (Primary Dx) 04/16/2025 Orders Only [facility] Hematology - [address] [place] [address] Bishop Castellanos MD Polycythemia, secondary 04/12/2025 External Device Data STL ABSTRACTION Provider, Abstract 04/11/2025 External Device Data STL ABSTRACTION Provider, Abstract 04/11/2025 External Device Data STL ABSTRACTION Provider, Abstract 04/02/2025 Orders Only [facility] On[facility] Hematology - [address] [place] [address] Bishop Castellanos MD Polycythemia, secondary from Last 3 Months Family History Medical [...] Care Team (Late st Contact Info) Description 11/05/2025 10:15 AM TECHNICAL APPLICATIONS SPECIALIST Office Visit [facility] On[facility] and Hematology - Dane [address] [facility] [address] [place] [address] Bishop Castellanos MD [address] [facility] [address] [place] [address] Health Maintenance Due Date Last Done Comments DTAP/TDAP/TD VACCINES (1 - Tdap) 1969 PNEUMOCOCCAL VACCINE 50+ YEARS (1 of 2 - PCV) 06/05/19 [birth year] Lung Cancer Screening 1998 ZOSTER VACCINE (1 of 2) 1998 RSV VACCINE (60+ or ) (1 - 1-dose 75+ series) 2023 INFLUENZA VACCINE (#1) 2025 09/03/2023 OSTEOPOROSIS SCREENING 04/30/2026 04/30/2021 Procedures Procedure Name Priority Date/Time Associated Diagnosis Comments CBC WITH DIFFERENTIAL Routine 04/26/2025 1:51 PM CDT from Last 3 Months Results * CBC WITH DIFFERENTIAL (04/26/2025 1:51 PM CDT) Blood us Bishop Castellanos MD HEMATOLOGY ORDERABLES Final Res ult from Last 3 Months Insurance MEDICARE PART A AND B [facility] [id number] Care Teams Scientist Relationship Specialty Start Date End Date Lucas Hernandez MD [address] [facility] [address] [place] [address] PCP - General Family Practice 04/26/25
[2025-06-28 13:00] VITALS: PULSE 83; O2SAT 95
[2025-06-28 13:03] VITALS: PULSE 119; O2SAT 86
[2025-06-28 13:04] VITALS: O2SAT 87
[2025-06-28 13:05] VITALS: PULSE 118; O2SAT 92
[2025-06-28 13:15] VITALS: PULSE 86; O2SAT 96
--- NOTE | 2025-06-28 15:15 | HOMEO2EVAL ---
Evaluation was performed at [facility] Home Oxygen Evaluation RC: Home Oxygen (O2) Evaluation Start: 06/28/25 15:12 Freq: Status: Active Protocol: RPE Activity Type Activity Date Activity User E-sign Co-sign Detail Recorded Client Recorded Date Recorded By Document 06/28/25 13:00 GAB [email or web address] 06/28/25 15:15 GAB Document 06/28/25 13:03 GAB [email or web address] 06/28/25 15:15 GAB Document 06/28/25 13:04 GAB [email or web address] 06/28/25 15:15 GAB Document 06/28/25 13:05 GAB [email or web address] 06/28/25 15:15 GAB Document 06/28/25 13:15 GAB [email or web address] 06/28/25 15:15 GAB 06/28/25 06/28/25 06/28/25 13:00 13:03 13:04 Home O2 Evaluation [Oxygen] -Test Phase Resting Exercise Exercise -Oxygen Delivery Room Air Room Air Nasal Cannula -Oxygen Flow Rate (L/min) 1 [Pulse Oximetry] -Pulse Oximetry (90-100 %) 95 86 L 87 L [Pulse Rate] -Pulse Rate (60-100 beats/min) 83 119 H [Exercise] -Ambulation Distance (feet) -Ambulation Distance (meters) [Comments] -Home Oxygen Evaluation Comments [Charges] -Evaluation Charges O2 Evaluation by Pulmonary 06/28/25 06/28/25 13:05 13:15 Home O2 Evaluation [Oxygen] -Test Phase Exercise Resting -Oxygen Delivery Nasal Cannula Room Air -Oxygen Flow Rate (L/min) 2 [Pulse Oximetry] -Pulse Oximetry (90-100 %) 92 96 [Pulse Rate] -Pulse Rate (60-100 beats/min) 118 H 86 [Exercise] -Ambulation Distance (feet) 700 -Ambulation Distance (meters) 213.34 [Comments] -Home Oxygen Evaluation Comments Pt requires 2 liters home o2 with exertion/ activity [Charges] -Evaluation Charges
--- NOTE | 2025-06-28 15:18 | PCRCNOTE ---
Home O2 eval faxed to office staff, new set-up, requesting POC
--- NOTE | 2025-06-28 16:19 | WPDPFTINT ---
PFT Procedure Performed PFT Procedure Performed Spirometry with Pre/Post Bronchodilator Plethysmography (Lung Vol) Diffusing Cap (DLCO) Flow Vol Loop PFT Interpretation This is a pulmonary function test with pre and post-bronchodilator spirometry, plethysmography and diffusing capacity. The test was performed and results interpreted in accordance with the 2019 and 2005 ATS/ERS Task Force guidelines respectively using the Global Lung Function Initiative-2012 reference equations. Patient demonstrated good effort and cooperation. Reproducibility criteria were met. The quality of the pre bronchodilator spirometry maneuver was Grade A and post bronchodilator spirometry maneuver was Grade A. Findings: Spirometry: There is decreased maximal expiratory airflow at all lung volumes with concave expiratory flow tracing. The contour the inspiratory flow tracing is normal. The pre bronchodilator FVC is 1.67 L, 63% predicted. The pre bronchodilator FEV1 is 0.53 L, 26% predicted. The pre bronchodilator FEV1: FVC ratio is 32%. The post bronchodilator FVC is 1.87 L, representing a 13% increase. The post bronchodilator FEV1 is 0.60 L, representing a 12% increase. The post bronchodilator FEV1: FVC ratio is 32%. Plethysmography: Total lung capacity is 8.44 L, 166% predicted. The functional residual capacity is 7.80 L, 267% predicted. The residual volume is 6.77 L, 290% predicted. The residual volume: Total lung capacity ratio is 80%. Diffusing capacity: The diffusing capacity unadjusted for hemoglobin and carboxyhemoglobin is 6.7, 34% predicted. The diffusing capacity adjusted for alveolar volume is 2.34, 56% predicted. Impression: There is a very severe obstructive abnormality. There is significant improvement after inhaling a single dose of albuterol. The increase in residual volume to total lung volume ratio is consistent with hyperinflation from an obstructive abnormality. The diffusing capacity unadjusted for hemoglobin and carboxyhemoglobin is severely decreased and remained moderately decreased when adjusted for alveolar volume. There are no prior studies for comparison
== END 2025-06-28 12:46 | disposition home or self-care (01) ==
LOC: ANHPFT 12:46
PROVIDERS: PCP Family Medicine; Visit Provider Nurse Practitioner Family
DX: J44.9 Chronic obstructive pulmonary disease, unspecified (principal); Z87.891 Personal history of nicotine dependence; R94.2 Abnormal results of pulmonary function studies
CPT/HCPCS: 94060; 94618; 94726; 94729